=== PATIENT | male | born 1945 | race Caucasian/White ===

== ENCOUNTER 2018-06-25 08:07 | Day surgery (SDC) | payer OTHER ==
[~2018-06-25] VITALS: Ht 175.3 cm; Wt 89.4 kg
[2018-06-25] MEDS ORDERED: MORPHINE 4 MG/ML INJ. SYRINGE IVP PRN ×3 (10:30)
[2018-06-25] MEDS ORDERED: ACETAMINOPHEN/CODEINE 300 MG-30 MG TABLET PO PRN (10:30)
[2018-06-25] MEDS ORDERED: METOCLOPRAMIDE HCL 10 MG/2 ML VIAL IVP PRN (10:30)
[2018-06-25] MEDS ORDERED: MIDAZOLAM HCL 5 MG/ML VIAL (VERSED) IV ONE (10:35)
[2018-06-25] MEDS ORDERED: OXYMETAZOLINE HCL 0.05% NASAL SPRAY NS ONE (10:35)
[2018-06-25] MEDS ORDERED: SEVOFLURANE 15 MIN GAS INH ONE (10:35)
[2018-06-25] MEDS ORDERED: MIVACURIUM CHLORIDE 20 MG/10 ML VIAL (MIVACRON) INJ ONE (10:35)
[2018-06-25] MEDS ORDERED: LR 1,000 ML IV.SOLN IV ONE (10:35)
[2018-06-25] MEDS ORDERED: NS IRRIG SOLN 1000 ML IR ONE (10:35)
[2018-06-25] MEDS ORDERED: ONDANSETRON HCL 4 MG/2 ML VIAL ONE (10:35)
[2018-06-25] MEDS ORDERED: fentaNYL CITRATE/PF 100 MCG/2 ML AMP ONE (10:35)
[2018-06-25] MEDS ORDERED: PROPOFOL 200MG/ 20ML VIAL (DIPRIVAN) IV ONE (10:35)
[2018-06-25] MEDS ORDERED: DEXAMETHASONE SOD PHOSPHATE 4 MG/ML VIAL ONE (10:35)
[2018-06-25 11:39] VITALS: BP_SYST 140
[2018-06-25] MEDS ORDERED: ACETAMINOPHEN/CODEINE 300 MG-30 MG TABLET ONE (11:50)
== END 2018-06-25 12:40 | disposition home or self-care (01) ==
LOC: SDS 08:07 → SMU 08:09 → SDS 12:40
PROVIDERS: ATTEND Otolaryngology Plastic Surgery within the Head & Neck
DX: H69.81 Other specified disorders of Eustachian tube, right ear (principal); E66.3 Overweight; H91.91 Unspecified hearing loss, right ear; E03.9 Hypothyroidism, unspecified; Z79.899 Other long term (current) drug therapy
CPT/HCPCS: 69799; C1726; J1100; J2250; J2405; J2704; J3010; J7120